=== PATIENT | male | born 1970 | race Native Hawaiian/Other Pacific Islander ===

== ENCOUNTER 2016-09-21 22:22 | Observation (INO) | payer BC ==
[~2016-09-21] VITALS: Ht 193 cm; Wt 103.2 kg
[2016-09-21 22:38] VITALS: BP 158/112; TEMP 97.4
[2016-09-21 22:58] LABS: PLATELET COUNT 234 K/uL (142-355)
[2016-09-21 23:10] LABS: POTASSIUM 4.1 mmol/L (3.6-5.2); SODIUM 139 mmol/L (136-145)
[2016-09-22 03:37] VITALS: BP 133/79; TEMP 98.1; Ht 193 cm; Wt 103.2 kg
[2016-09-22 06:28] LABS: PLATELET COUNT 211 K/uL (142-355)
[2016-09-22 06:46] LABS: POTASSIUM 4.1 mmol/L (3.6-5.2); SODIUM 139 mmol/L (136-145)
[2016-09-22 07:42] VITALS: BP 112/79; TEMP 97.5
[2016-09-22 12:00] VITALS: BP 123/68; TEMP 97.9
[2016-09-22 16:00] VITALS: BP 145/83; TEMP 98.4
[2016-09-22 20:00] VITALS: BP 129/85; TEMP 97.8
[2016-09-23 00:25] VITALS: BP 128/85; TEMP 97.6
[2016-09-23 04:00] VITALS: BP 134/82; TEMP 97.7
[2016-09-23 05:02] LABS: PLATELET COUNT 187 K/uL (142-355)
[2016-09-23 05:24] LABS: POTASSIUM 3.6 mmol/L (3.6-5.2); SODIUM 139 mmol/L (136-145)
[2016-09-23 08:00] VITALS: BP 129/89; TEMP 98
[2016-09-23 12:14] VITALS: BP 139/87; TEMP 98.2
== END 2016-09-23 14:38 | disposition home or self-care (01) ==
LOC: ED 22:22 → MED/SURG 09-22 01:30
PROVIDERS: Emergency Medicine
DX: R10.84 Generalized abdominal pain (principal); K56.69 Other intestinal obstruction; A04.8 Other specified bacterial intestinal infections; N20.0 Calculus of kidney; K52.89 Other specified noninfective gastroenteritis and colitis
CPT/HCPCS: 36415; 80053; 82150; 83690; 83735; 85027; 86318; 96365; 96366; 96374; 96375; 96376; 99220; 99284; G0378; J1170; J2405; J3490

== ENCOUNTER 2018-01-16 10:39 | Outpatient (CLI) | payer BC | END 2018-01-16 23:04 | disposition home or self-care (01) | LOC: US 10:39 | DX: R94.5 Abnormal results of liver function studies (principal) ==

== ENCOUNTER 2018-12-18 12:21 | Outpatient (CLI) | payer BC | END 2018-12-18 22:58 | disposition home or self-care (01) | LOC: RAD 12:21 | DX: M79.604 Pain in right leg (principal); R60.0 Localized edema; M25.561 Pain in right knee ==

== ENCOUNTER 2020-07-16 11:10 | Outpatient (CLI) | payer BC ==
[2020-07-16 15:30] LABS: PLATELET COUNT 214 K/uL (142-355)
[2020-07-16 15:36] LABS: POTASSIUM 3.8 mmol/L (3.6-5.2)
== END 2020-07-16 21:31 | disposition home or self-care (01) ==
LOC: CT 11:10
PROVIDERS: ATTEND Nurse Practitioner Family
DX: M54.9 Dorsalgia, unspecified (principal); Z87.442 Personal history of urinary calculi; R11.2 Nausea with vomiting, unspecified; R31.9 Hematuria, unspecified; N13.30 Unspecified hydronephrosis; N20.0 Calculus of kidney
CPT/HCPCS: 36415; 80053; 83735; 84100; 84550; 85027

== ENCOUNTER 2020-08-10 16:25 | Outpatient (CLI) | payer BC ==
[2020-08-10 16:49] LABS: PLATELET COUNT 223 K/uL (142-355)
[2020-08-10 17:03] LABS: POTASSIUM 3.9 mmol/L (3.6-5.2)
== END 2020-08-10 22:32 | disposition home or self-care (01) ==
LOC: CT 16:25
PROVIDERS: ATTEND Nurse Practitioner Family
DX: N13.2 Hydronephrosis with renal and ureteral calculous obstruction (principal); M54.9 Dorsalgia, unspecified; Z87.442 Personal history of urinary calculi; R31.9 Hematuria, unspecified; Z86.79 Personal history of other diseases of the circulatory system
CPT/HCPCS: 36415; 80053; 83735; 84100; 84550; 85027

== ENCOUNTER 2020-12-31 12:43 | Outpatient (CLI) | payer BC | END 2020-12-31 20:14 | disposition home or self-care (01) | LOC: RAD 12:43 | PROVIDERS: ATTEND Nurse Practitioner Family | DX: M25.50 Pain in unspecified joint (principal); M79.631 Pain in right forearm; M25.521 Pain in right elbow; M89.8X2 Other specified disorders of bone, upper arm ==

== ENCOUNTER 2021-02-09 15:08 | Outpatient (CLI) | payer BC | END 2021-02-09 20:09 | disposition home or self-care (01) | LOC: MRI 15:08 | PROVIDERS: ATTEND Nurse Practitioner Family | DX: M79.631 Pain in right forearm (principal); M79.18 Myalgia, other site; M89.8X3 Other specified disorders of bone, forearm; M25.521 Pain in right elbow; M89.8X2 Other specified disorders of bone, upper arm ==